=== PATIENT | male | born 1990 | race African-American/Black ===

== ENCOUNTER 2020-03-31 12:37 | Emergency (ER) | payer MEDICAID ==
[~2020-03-31] VITALS: Ht 165.1 cm; Wt 59.0 kg
[2020-03-31 15:00] VITALS: BP 128/81
== END 2020-03-31 15:05 | disposition home or self-care (01) ==
LOC: ER 12:37
DX: Z03.818 Encounter for observation for suspected exposure to other biological agents ruled out (principal); K52.9 Noninfective gastroenteritis and colitis, unspecified
CPT/HCPCS: 99283; C9803; U0003; 99281

== ENCOUNTER 2020-04-03 03:55 | Emergency (ER) | payer MEDICAID ==
[~2020-04-03] VITALS: Ht 165.1 cm; Wt 60.1 kg
[2020-04-03 04:08] VITALS: BP 146/81
[2020-04-03 07:36] LABS: BASOPHILS % 0.6 % (0.0-2.0); EOSINOPHILS % 1.5 % (0.0-5.0); HEMATOCRIT. 44.9 % (42.0-52.0); HEMOGLOBIN. 16.1 g/dL (14.0-18.0); LYMPHOCYTES % 25.7 % (20.0-50.0); MEAN CORPUSCULAR HEMOGLOBIN 32.3 pg (28.0-32.0); MEAN CORPUSCULAR VOLUME 90.1 fL (80.0-94.0); MEAN PLATELET VOLUME 8.1 fl (7.4-10.4); MONOCYTES % 5.1 % (2.0-8.0); NEUTROPHILS % 67.1 % (40.0-76.0); PLATELET 192 x1000/uL (130-400); RED BLOOD CELL COUNT 4.99 mill/uL (4.7-6.1); RED CELL DISTRIBUTION WIDTH 12.8 % (11.6-14.6)
[2020-04-03 07:42] LABS: CHLORIDE 106 mEq/L (98-107)
[2020-04-03 08:25] LABS: CLARITY URINE CLEAR (CLEAR); COLOR URINE YELLOW (YELLOW); KETONES URINE NEGATIVE (NEGATIVE); LEUKOCYTE ESTERASE URINE NEGATIVE (NEGATIVE); NITRITE URINE NEGATIVE (NEGATIVE); OCCULT BLOOD URINE NEGATIVE (NEGATIVE); PH URINE 7.5 (4.5-8.0); PROTEIN URINE NEGATIVE (NEGATIVE); SPECIFIC GRAVITY URINE 1.014 (1.005-1.030); UROBILINOGEN URINE 0.2 E.U./dL (0.2-1.0)
== END 2020-04-03 09:20 | disposition home or self-care (01) ==
LOC: ER 04:25
DX: R53.81 Other malaise (principal); R53.83 Other fatigue
CPT/HCPCS: 36415; 80048; 81003; 85025; 99283

== ENCOUNTER 2020-04-08 08:53 | Emergency (ER) | payer MEDICAID ==
[~2020-04-08] VITALS: Ht 165.1 cm; Wt 63.0 kg
[2020-04-08 10:56] VITALS: BP 119/63
== END 2020-04-08 10:57 | disposition home or self-care (01) ==
LOC: ER 08:53
DX: K21.9 Gastro-esophageal reflux disease without esophagitis (principal)
CPT/HCPCS: 99283